=== PATIENT | female | born 1985 | race Two or more races ===

== ENCOUNTER 2019-12-16 15:14 | Emergency (ER) | payer OTHER ==
[~2019-12-16] VITALS: Ht 170.2 cm; Wt 84.4 kg
[2019-12-16 15:27] VITALS: BP 146/103
--- NOTE | 2019-12-16 15:27 | NUR ---
came in for generalized itching, spoke to friend states pt is anxious, to ER bed 10, hooked to monitor, warm blanket provided, awaiting MD min.
== END 2019-12-16 16:43 | disposition home or self-care (01) ==
LOC: ER 15:17
DX: L29.9 Pruritus, unspecified (principal)

== ENCOUNTER 2020-02-14 14:43 | Emergency (ER) | payer OTHER ==
[~2020-02-14] VITALS: Ht 167.6 cm; Wt 79.4 kg
--- NOTE | 2020-02-14 15:07 | NUR ---
patient came in to the er c/o migraine headache x 4 years worst this morning. On room air, breathing evenly and unlabored. connected to the monitor and pulse ox. kept comfortable, will continue to monitor accordingly.
--- NOTE | 2020-02-14 17:02 | NUR ---
Patient discharged to home in stable condition. Written and verbal after care instructions given via [employer]a asbestos siding installer. Patient verbalizes understanding of instruction.
[2020-02-14 17:16] VITALS: BP 137/88
== END 2020-02-14 17:17 | disposition home or self-care (01) ==
LOC: ER 14:43
DX: G43.909 Migraine, unspecified, not intractable, without status migrainosus (principal); R42 Dizziness and giddiness
CPT/HCPCS: 70450-TC; 84703-TC

== ENCOUNTER 2020-02-21 14:25 | Emergency (ER) | payer OTHER ==
[~2020-02-21] VITALS: Ht 165.1 cm; Wt 88.9 kg
[2020-02-21 14:39] VITALS: BP 155/85
--- NOTE | 2020-02-21 15:37 | NUR ---
Patient awake alert non distress phone railway track plant operator done Dr. jacqui mcnamara @ bedside
--- NOTE | 2020-02-21 15:38 | NUR ---
Patient Dc home instruction given agrees to see PMD in 2 days verbalized understanding
== END 2020-02-21 15:43 | disposition home or self-care (01) ==
LOC: ER 14:30
DX: G43.909 Migraine, unspecified, not intractable, without status migrainosus (principal)